=== PATIENT | male | born 1960 | race Hispanic/Latino ===

== ENCOUNTER 2019-05-19 16:44 | Inpatient (IN) | payer MEDICARE, OTHER ==
[~2019-05-19] VITALS: Ht 167.6 cm; Wt 84.5 kg
[2019-05-19] MEDS ORDERED: ONDANSETRON HCL 4 MG/2 ML VIAL ONE (17:01)
[2019-05-19 17:14] LABS: BASOPHILS % (AUTO) 0.6 % (0.0-5.0); EOSINOPHILS % (AUTO) 0.9 % (0.0-8.0); HEMATOCRIT 35.5 % (42-54); LYMPHOCYTES % (AUTO) 23.1 % (21.0-51.0); MEAN CORPUSCULAR HEMOGLOBIN 27.8 pg (27.0-33.0); MEAN CORPUSCULAR HGB CONC 33.7 g/dL (32.0-36.0); MEAN CORPUSCULAR VOLUME 82.6 fL (79-99); NEUTROPHILS % (AUTO) 64.4 % (40.0-77.0); PLATELET COUNT (AUTO) 315 K/uL (130-400)
[2019-05-19 17:22] LABS: APPEARANCE,URINE Clear (CLEAR); BILIRUBIN,URINE Negative (NEGATIVE); COLOR,URINE Yellow (YELLOW); GLUCOSE, URINE (UA) >=1000 mg/dL (NEGATIVE); KETONES,URINE Negative (NEGATIVE); LEUKOCYTE ESTERASE ,URINE Negative (NEGATIVE); NITRATE,URINE Negative (NEGATIVE); OCCULT BLOOD,URINE Trace (NEGATIVE); PROTEIN,URINE 300 mg/dL (NEGATIVE); UROBILINOGEN,URINE 0.2 mg/dL (0.2-1.0)
[2019-05-19 17:28] LABS: INR 0.95 (0.85-1.15)
[2019-05-19 17:32] LABS: ALBUMIN 4.2 g/dL (3.5-5.0); BILIRUBIN,TOTAL 0.4 mg/dL (0.2-1.0); POTASSIUM 4.6 mmol/L (3.5-5.1); TOTAL PROTEIN, SERUM 8.3 g/dL (6.0-8.3)
[2019-05-19 17:39] LABS: BACTERIA,URINE Few /HPF (None Seen); MUCUS,URINE None Seen LPF (None Seen); SQUAMOUS EPITHELIAL CELL,UR 0-2 /HPF (0-2)
[2019-05-19 17:40] LABS: PARTIAL THROMBOPLASTIN TIME 25.2 SEC (26.3-35.5)
[2019-05-19] MEDS ORDERED: SODIUM CHLORIDE 0.9% 1000ML 1,000 ML IV ONE ×2 (17:43→21:19)
[2019-05-19] MEDS ORDERED: SODIUM CHLORIDE 0.9% 100 ML IV ONE (18:01)
[2019-05-19] MEDS: SODIUM CHLORIDE 0.9% 1000ML 1,000 ML IV SCH (18:58)
[2019-05-19] MEDS ORDERED: ACETAMINOPHEN 325 MG TAB PO PRN (19:00)
[2019-05-19] MEDS ORDERED: ZOSYN 3.375GM+NS 50ML 50 ML IV SCH (20:00)
[2019-05-19 20:16] LABS: HEMOGLOBIN A1C 9.2 % (4.0-6.0)
[2019-05-19] MEDS ORDERED: INSULIN HUMULIN R 100 UNIT/ML 3ML SQ SCH (21:00)
[2019-05-19] MEDS ORDERED: ACETAMINOPHEN 325 MG TAB ONE (21:19)
[2019-05-19] MEDS ORDERED: INSULIN HUMULIN R 100 UNIT/ML 3ML ONE (21:58)
[2019-05-19 22:00] VITALS: BP 161/84
[2019-05-19] MEDS: ZOSYN 3.375GM+NS 50ML 50 ML IV SCH (22:58)
[2019-05-19 23:28] VITALS: BP 148/76
[2019-05-20] MEDS: INSULIN HUMULIN R 100 UNIT/ML 3ML SQ SCH ×5 (00:23→21:29)
[2019-05-20 03:37] VITALS: BP 125/71
[2019-05-20] MEDS: ONDANSETRON HCL 4 MG/2 ML VIAL IV PRN ×3 (04:05→20:24)
[2019-05-20] MEDS ORDERED: PANT40TA25 PO (04:24)
[2019-05-20] MEDS ORDERED: LACT1TAB26 PO (04:24)
[2019-05-20] MEDS ORDERED: ONDA4TAB9 PO (04:24)
[2019-05-20] MEDS ORDERED: FERR325T22 PO (04:24)
[2019-05-20] MEDS ORDERED: FURO40TA5 PO (04:24)
[2019-05-20] MEDS ORDERED: SIMV40TA59 PO (04:24)
[2019-05-20] MEDS ORDERED: AMLO5TAB9 PO (04:24)
[2019-05-20] MEDS ORDERED: LUBI24CA2 PO (04:24)
[2019-05-20] MEDS ORDERED: LISI10TA7 PO (04:24)
[2019-05-20] MEDS ORDERED: METO50TA18 PO (04:24)
[2019-05-20] MEDS ORDERED: ASPI-555 PO (04:24)
[2019-05-20] MEDS ORDERED: VITA1CAP50 PO (04:24)
[2019-05-20] MEDS ORDERED: CLOP75TA32 PO (04:24)
[2019-05-20] MEDS ORDERED: LINA290C PO (04:24)
[2019-05-20 04:45] LABS: BASOPHILS % (AUTO) 0.7 % (0.0-5.0); EOSINOPHILS % (AUTO) 2.2 % (0.0-8.0); HEMATOCRIT 32.4 % (42-54); LYMPHOCYTES % (AUTO) 25.5 % (21.0-51.0); MEAN CORPUSCULAR HEMOGLOBIN 27.5 pg (27.0-33.0); MEAN CORPUSCULAR HGB CONC 33.8 g/dL (32.0-36.0); MEAN CORPUSCULAR VOLUME 81.3 fL (79-99); MONOCYTES % (AUTO) 12.7 % (3.0-13.0); NEUTROPHILS % (AUTO) 58.9 % (40.0-77.0); PLATELET COUNT (AUTO) 273 K/uL (130-400); RED BLOOD CELL COUNT(AUTO) 3.98 MIL/uL (4.50-6.20); RED CELL DISTRIBUTION WIDTH 13.9 % (11.0-15.5); WHITE BLOOD COUNT (AUTO) 7.8 K/uL (4.8-10.8)
[2019-05-20 04:52] LABS: CREATININE 1.7 mg/dL (0.5-1.5)
[2019-05-20] MEDS: SODIUM CHLORIDE 0.9% 1000ML 1,000 ML IV SCH ×2 (05:40→14:58)
[2019-05-20] MEDS: ZOSYN 3.375GM+NS 50ML 50 ML IV SCH ×3 (05:40→21:27)
[2019-05-20] MEDS: MORPHINE SULFATE 2 MG/ML 1ML SYG IVP PRN ×3 (05:41→13:32)
[2019-05-20 08:10] VITALS: BP 160/74
[2019-05-20] MEDS: ENOXAPARIN SODIUM 40 MG/0.4 ML SYRINGE SQ SCH (08:56)
[2019-05-20 10:43] LABS: TROPONIN I 0.09 ng/mL (0.00-0.06)
[2019-05-20] MEDS: HYDRALAZINE HCL 20 MG/ML VIAL IV PRN (11:18)
[2019-05-20 12:00] VITALS: BP 145/77
[2019-05-20] MEDS ORDERED: ONDANSETRON 4 MG TABLET PO PRN (13:15)
[2019-05-20] MEDS ORDERED: NITROGLYCERIN 0.4 MG SL TAB SL ONE (13:28)
[2019-05-20] MEDS ORDERED: ASPIRIN 81MG TAB.CHEW ONE (13:29)
[2019-05-20] MEDS ORDERED: NITROGLYCERIN 0.4 MG SL TAB SL PRN (13:30)
--- NOTE | 2019-05-20 14:00 | NUR ---
INITIAL MET W PT AND FAMILY AT [facility]- DAUGHTER TRENT ,JOSE GUADALUPE WILL PROVIDE RANSPORT HOME.PT HAS DME- SC WKR WC, BUT NO PROSTHESIS FOR R BKA- SURGERY WAS 3 MOS AGO. PT DID NOT HAVE ANY PT POST SURGERY . PT HERE FOR ABDOMINAL PAIN AND WAS DISCONTENTED AT THE OTHER HOSPITAL. DAUGHTER STATES PT WILL LEAVE 'IF HE DOES NOT GET THE CARE HE NEED" DCP IS HOME, WILL WAIT TILL POST EGD TO SEE IF PT WILL HAVE OTHER AFTERCARE NEED Addendum: 05/20/19 at 1457 by KRISTINA SCHRADER RN CM Amended: Links added.
[2019-05-20 16:00] VITALS: BP 175/84
--- NOTE | 2019-05-20 16:35 | NUR ---
DR. PEREZ PAGED PT ASKED IF HE SEES ANY MENTAL HEALTH THERAPIST OUT PATIENT, HE STATED NO, DR. PEACE WAS THEN CONSULTED TO SEE PT, PT THEN CONFIRMS HE SEE DR PEREZ, DR. TAYLOR THEN SAID TO GO AHEAD AND CONSULT DR. PEREZ FOR ACTIVE CHEST PAIN. DR. DAVEY PAGED AND PENDING CALL BACK. NURSING WILL CONTINUE TO FOLLOW UP.
[2019-05-20 18:04] LABS: TROPONIN I 0.51 ng/mL (0.00-0.06)
--- NOTE | 2019-05-20 18:32 | NUR ---
DR. DAVEY PAGED. DR. DAVEY PAGED TO NOTIFY OF ELEVATED TROPONIN, PENDING CALL BACK.
[2019-05-20] MEDS: FERROUS SULFATE 325 MG TABLET.DR PO SCH (18:40)
[2019-05-20 19:15] VITALS: BP 160/83
[2019-05-20] MEDS: LISINOPRIL 10 MG TABLET PO SCH (20:25)
[2019-05-20] MEDS: METOPROLOL TARTRATE 50 MG TAB PO SCH (20:25)
[2019-05-20] MEDS: SIMVASTATIN 20 MG TABLET PO SCH (20:25)
[2019-05-20] MEDS: ACETAMINOPHEN 325 MG TAB PO PRN (20:26)
--- NOTE | 2019-05-20 20:27 | NUR ---
DR DAVEY CALLED BACK AND MADE AWARE OF ELEVATED TROPONIN, TO STOP BY AND SEE RUBY AWAD.
--- NOTE | 2019-05-20 20:45 | NUR ---
MD TAMICA Jane made rounds and spoke to patient about who is his heart doctor and when the last time patient saw his heart doctor. Patient states he saw MD Isaac last year at heart [facility] and MD Wood did his amputation. When Tamica asked who would he like to see as his heart doctor, patient states Md Isaac. MD Jane says he will sign off and to call MD Isaac to be consulted onto this case.
--- NOTE | 2019-05-20 20:48 | NUR ---
MD PEACE Paged MD Peace; returned the page. Explained to MD Peace that MD Jane came by to see the patient and asked patient who he saw as his heart doctor and that the patient stated Md Peace. MD Peace stated that he has never seen or spoked to patient prior to this admission. MD Peace states he spoke to MD Wood at [facility] [place] and mentioned to him about the patient. states that MD Wood is familiar with patient and MD Peace states to consult MD Wood and let MD Jane know about patient being MD Wood patient. Will call back MD Jane.
--- NOTE | 2019-05-20 21:00 | NUR ---
MD DAVEY Paged MD Davey; returned page. Informed him that MD Isaac will not see the patient and that patient's heart doctor is MD Wood. MD Davye states to consult MD Wood in am. MD Davey states he will not be involved and spent too much time on this case. Asked MD Davey if he was motivational speaker for MD Wood just incase last troponin is higher than last, he states again he will not be involved and to consult MD Wood in am. Will follow order and continue to monitor patient.
[2019-05-21] VITALS (7 sets, daily range): BP systolic 145–187; BP diastolic 74–89
[2019-05-21 00:02] LABS: TROPONIN I 2.22 ng/mL (0.00-0.06)
--- NOTE | 2019-05-21 00:25 | NUR ---
ELEVATED TROPONIN Received notification that patient's critical lab for troponin is 2.22; prior was 0.51. Paged MD supervisor erection shop via answering service; MD Jane is supervisor erection shop for MD Wood. Patient is asymptomatic and current vital signs are stable, with normal limits. Will wait for page and continue to monitor patient.
--- NOTE | 2019-05-21 00:35 | NUR ---
MD TAMICA Jane returned page and informed him of patient's critical lab of a troponin level of 2.22. Reported prior troponin lab values to MD Jane. states to keep patient NPO and to notify MD Rodgers at 0730 to see if wants to do a heart cath. Asked if patient had prn nitroglycerin and taking a beta coco; reported that patient does have prn nitroglycerin and has lopressor 50 mg po bid and given earlier around 9 pm. MD Jane states ok and no other orders obtained. Will follow orders and continue to monitor patient.
[2019-05-21] MEDS: ONDANSETRON HCL 4 MG/2 ML VIAL IV PRN ×2 (03:15→21:32)
[2019-05-21] MEDS: MORPHINE SULFATE 2 MG/ML 1ML SYG IVP PRN ×3 (03:21→17:25)
[2019-05-21] MEDS: SODIUM CHLORIDE 0.9% 1000ML 1,000 ML IV SCH ×3 (04:10→20:58)
[2019-05-21 05:10] LABS: BASOPHILS % (AUTO) 0.3 % (0.0-5.0); EOSINOPHILS % (AUTO) 1.5 % (0.0-8.0); HEMATOCRIT 29.4 % (42-54); LYMPHOCYTES % (AUTO) 16.5 % (21.0-51.0); MEAN CORPUSCULAR HEMOGLOBIN 27.4 pg (27.0-33.0); MEAN CORPUSCULAR HGB CONC 33.2 g/dL (32.0-36.0); MEAN CORPUSCULAR VOLUME 82.6 fL (79-99); MONOCYTES % (AUTO) 9.4 % (3.0-13.0); NEUTROPHILS % (AUTO) 72.3 % (40.0-77.0); PLATELET COUNT (AUTO) 244 K/uL (130-400); RED BLOOD CELL COUNT(AUTO) 3.56 MIL/uL (4.50-6.20); RED CELL DISTRIBUTION WIDTH 14.1 % (11.0-15.5); WHITE BLOOD COUNT (AUTO) 9.7 K/uL (4.8-10.8)
[2019-05-21 05:28] LABS: CREATININE 1.7 mg/dL (0.5-1.5); POTASSIUM 4.1 mmol/L (3.5-5.1)
[2019-05-21] MEDS: ZOSYN 3.375GM+NS 50ML 50 ML IV SCH ×2 (05:29→14:07)
[2019-05-21] MEDS: INSULIN HUMULIN R 100 UNIT/ML 3ML SQ SCH ×4 (05:30→21:42)
[2019-05-21] MEDS: PANTOPRAZOLE SODIUM 40 MG TABLET.DR PO SCH (05:30)
--- NOTE | 2019-05-21 07:44 | NUR ---
PAGED MD RODGERS Order to consult MD Wood in AM for elevated troponin; Paged via answering service. Provided day shift nurse's name and phone number for MD Rodgers to reach. Will endorse to day shift nurse.
[2019-05-21] MEDS: LACTOBACILLUS RHAMNOSUS GG 1 EACH CAP.SPRINK PO SCH (08:00)
[2019-05-21] MEDS: FERROUS SULFATE 325 MG TABLET.DR PO SCH ×2 (08:00→17:25)
--- NOTE | 2019-05-21 08:20 | NUR ---
SPOKE TO DR. PEREZ ON THE PHONE AND NOTIFY HIM ABOUT THE CONSULT. HE VERBALIZED THAT HE IS AWARE OF THE CONSULT THAT DR. PEACE TALKED TO HIM LAST NIGHT. NO ORDERS WAS GIVEN.
[2019-05-21] MEDS: ASPIRIN 81 MG EC TAB PO SCH (08:38)
[2019-05-21] MEDS: METOPROLOL TARTRATE 50 MG TAB PO SCH ×2 (08:38→21:32)
[2019-05-21] MEDS: FUROSEMIDE 40 MG TABLET PO SCH (08:38)
[2019-05-21] MEDS: AMLODIPINE BESYLATE 5 MG TAB PO SCH (08:40)
[2019-05-21] MEDS: HOME MEDICATION 1 EACH PO SCH (09:00)
[2019-05-21] MEDS: VITAMIN B COMPLEX 1 CAPSULE PO SCH (09:00)
[2019-05-21] MEDS: LUBIPROSTONE 24 MCG CAP PO SCH (09:00)
--- NOTE | 2019-05-21 09:12 | NUR ---
DR. PEREZ AT THE BEDSIDE. DISCUSSED THE PLAN OF CARE TO THE PATIENT. HE ORDERED TO SETS OF TROPONIN NOW AND ANOTHER ONE FOR 3 PM. HE ALSO TOLD ME THAT HE MIGHT DO THE STRESS TEST IF THE TROPONIN WILL NOT CONTINUE TO ELEVATE. NO ORDERS FOR HEART CATH AT THIS POINT.
[2019-05-21] MEDS: ENOXAPARIN SODIUM 40 MG/0.4 ML SYRINGE SQ SCH (11:43)
[2019-05-21] MEDS: CLOPIDOGREL BISULFATE 75 MG TAB PO SCH (11:45)
[2019-05-21] MEDS: PANTOPRAZOLE SODIUM 80 MG in SODIUM CHLORIDE 0.9% 100 ML IV SCH (18:19)
[2019-05-21] MEDS: LISINOPRIL 10 MG TABLET PO SCH (21:32)
[2019-05-21] MEDS: SIMVASTATIN 20 MG TABLET PO SCH (21:33)
[2019-05-21] MEDS: ACETAMINOPHEN 325 MG TAB PO PRN (21:41)
--- NOTE | 2019-05-21 22:00 | NUR ---
lab called patient is still pending a stool culture. had previously asked ED to send sample, but lab says the message must not have been relayed to the floor nurse. will inform CHOPPED STRAND OPERATOR and oncoming nurse of pending stool sample.
[2019-05-22] VITALS (7 sets, daily range): BP systolic 156–190; BP diastolic 69–99
[2019-05-22] MEDS: ZOSYN 3.375GM+NS 50ML 50 ML IV SCH ×4 (00:05→21:19)
[2019-05-22] MEDS: HYDRALAZINE HCL 20 MG/ML VIAL IV PRN (04:48)
[2019-05-22] MEDS: ONDANSETRON HCL 4 MG/2 ML VIAL IV PRN (06:14)
[2019-05-22] MEDS: MORPHINE SULFATE 2 MG/ML 1ML SYG IVP PRN ×2 (06:15→18:06)
[2019-05-22 06:49] LABS: BASOPHILS % (AUTO) 0.4 % (0.0-5.0); EOSINOPHILS % (AUTO) 2.4 % (0.0-8.0); LYMPHOCYTES % (AUTO) 12.9 % (21.0-51.0); MEAN CORPUSCULAR HEMOGLOBIN 27.3 pg (27.0-33.0); MEAN CORPUSCULAR HGB CONC 33.2 g/dL (32.0-36.0); MEAN CORPUSCULAR VOLUME 82.1 fL (79-99); MONOCYTES % (AUTO) 8.4 % (3.0-13.0); NEUTROPHILS % (AUTO) 75.9 % (40.0-77.0); PLATELET COUNT (AUTO) 241 K/uL (130-400); RED BLOOD CELL COUNT(AUTO) 3.89 MIL/uL (4.50-6.20); RED CELL DISTRIBUTION WIDTH 13.8 % (11.0-15.5); WHITE BLOOD COUNT (AUTO) 10.4 K/uL (4.8-10.8)
[2019-05-22] MEDS: SODIUM CHLORIDE 0.9% 1000ML 1,000 ML IV SCH (06:58)
[2019-05-22 07:13] LABS: POTASSIUM 3.9 mmol/L (3.5-5.1)
[2019-05-22 07:14] LABS: CREATININE 1.6 mg/dL (0.5-1.5)
[2019-05-22] MEDS: INSULIN HUMULIN R 100 UNIT/ML 3ML SQ SCH ×4 (07:30→21:35)
[2019-05-22] MEDS ORDERED: REGADENOSON 0.4 MG/5 ML PF SYG IVP SCH (07:30)
[2019-05-22] MEDS: PANTOPRAZOLE SODIUM 40 MG TABLET.DR PO SCH (07:30)
--- NOTE | 2019-05-22 07:56 | NUR ---
notified dr. mayen of the troponin 2.56 and also verify if he still wanted the stress test to be done. he verbalized to hold the stress test until he will say to do it and he will come by to see the patient first.
[2019-05-22] MEDS: LACTOBACILLUS RHAMNOSUS GG 1 EACH CAP.SPRINK PO SCH (08:00)
[2019-05-22] MEDS: FERROUS SULFATE 325 MG TABLET.DR PO SCH ×2 (08:00→17:00)
[2019-05-22] MEDS: VITAMIN B COMPLEX 1 CAPSULE PO SCH (08:10)
[2019-05-22] MEDS: LUBIPROSTONE 24 MCG CAP PO SCH (08:10)
[2019-05-22] MEDS: HOME MEDICATION 1 EACH PO SCH (08:10)
[2019-05-22] MEDS: METOPROLOL TARTRATE 50 MG TAB PO SCH ×2 (09:16→21:15)
[2019-05-22] MEDS: FUROSEMIDE 40 MG TABLET PO SCH (09:16)
[2019-05-22] MEDS: CLOPIDOGREL BISULFATE 75 MG TAB PO SCH (09:16)
[2019-05-22] MEDS: ASPIRIN 81 MG EC TAB PO SCH (09:17)
[2019-05-22] MEDS: AMLODIPINE BESYLATE 5 MG TAB PO SCH (09:17)
[2019-05-22] MEDS: ENOXAPARIN SODIUM 40 MG/0.4 ML SYRINGE SQ SCH (09:19)
[2019-05-22] MEDS: SIMVASTATIN 20 MG TABLET PO SCH (21:15)
[2019-05-22] MEDS: LISINOPRIL 10 MG TABLET PO SCH (21:16)
[2019-05-22] MEDS: ACETAMINOPHEN 325 MG TAB PO PRN (21:19)
[2019-05-23] VITALS (9 sets, daily range): BP systolic 154–196; BP diastolic 70–92
[2019-05-23] MEDS: MORPHINE SULFATE 2 MG/ML 1ML SYG IVP PRN ×2 (02:18→10:06)
[2019-05-23] MEDS: SODIUM CHLORIDE 0.9% 1000ML 1,000 ML IV SCH ×3 (03:10→22:58)
[2019-05-23 05:00] LABS: BASOPHILS % (AUTO) 0.8 % (0.0-5.0); EOSINOPHILS % (AUTO) 5.5 % (0.0-8.0); HEMATOCRIT 28.1 % (42-54); LYMPHOCYTES % (AUTO) 32.3 % (21.0-51.0); MEAN CORPUSCULAR HEMOGLOBIN 27.4 pg (27.0-33.0); MEAN CORPUSCULAR HGB CONC 33.7 g/dL (32.0-36.0); MEAN CORPUSCULAR VOLUME 81.3 fL (79-99); MONOCYTES % (AUTO) 13.1 % (3.0-13.0); NEUTROPHILS % (AUTO) 48.3 % (40.0-77.0); PLATELET COUNT (AUTO) 229 K/uL (130-400); RED BLOOD CELL COUNT(AUTO) 3.45 MIL/uL (4.50-6.20); RED CELL DISTRIBUTION WIDTH 13.5 % (11.0-15.5); WHITE BLOOD COUNT (AUTO) 5.5 K/uL (4.8-10.8)
[2019-05-23 05:36] LABS: CREATININE 1.5 mg/dL (0.5-1.5); POTASSIUM 3.6 mmol/L (3.5-5.1)
[2019-05-23] MEDS: ZOSYN 3.375GM+NS 50ML 50 ML IV SCH ×3 (05:51→21:30)
[2019-05-23] MEDS: HYDRALAZINE HCL 20 MG/ML VIAL IV PRN (06:13)
[2019-05-23] MEDS: PANTOPRAZOLE SODIUM 40 MG TABLET.DR PO SCH (06:14)
[2019-05-23] MEDS: INSULIN HUMULIN R 100 UNIT/ML 3ML SQ SCH ×4 (07:18→21:31)
[2019-05-23] MEDS: FERROUS SULFATE 325 MG TABLET.DR PO SCH ×2 (08:00→16:53)
[2019-05-23] MEDS: LACTOBACILLUS RHAMNOSUS GG 1 EACH CAP.SPRINK PO SCH (08:00)
--- NOTE | 2019-05-23 08:31 | NUR ---
DR PEREZ PAGED DR. PEREZ PAGED AND NOTIFIED ABOUT THE LEXISCAN NOT DONE DUE TO PT KIDNEY FUNCTION, HE ENQUIRED ABOUT THE TROPONIN LEVEL, MADE KNOWN TROPONIN LEVEL DROP FROM 2.60 TO 2.56, MD OKAYED FOR THE LEXISCAN TO BE DONE TODAY.
[2019-05-23] MEDS: HOME MEDICATION 1 EACH PO SCH (09:00)
[2019-05-23] MEDS: VITAMIN B COMPLEX 1 CAPSULE PO SCH (09:00)
[2019-05-23] MEDS: LUBIPROSTONE 24 MCG CAP PO SCH (09:00)
[2019-05-23] MEDS: REGADENOSON 0.4 MG/5 ML PF SYG IVP SCH ×2 (11:30→17:41)
--- NOTE | 2019-05-23 14:14 | NUR ---
PT UPDATE PT TAKEN DOWN FOR LEXISCAN, NURSING WILL CONTINUE TO FOLLOW UP AND MONITOR PT.
[2019-05-23] MEDS: FUROSEMIDE 40 MG TABLET PO SCH (16:53)
[2019-05-23] MEDS: ASPIRIN 81 MG EC TAB PO SCH (16:53)
[2019-05-23] MEDS: AMLODIPINE BESYLATE 5 MG TAB PO SCH (16:53)
[2019-05-23] MEDS: METOPROLOL TARTRATE 50 MG TAB PO SCH ×2 (16:53→21:29)
[2019-05-23] MEDS: CLOPIDOGREL BISULFATE 75 MG TAB PO SCH (16:53)
[2019-05-23] MEDS: ENOXAPARIN SODIUM 40 MG/0.4 ML SYRINGE SQ SCH (16:54)
[2019-05-23] MEDS ORDERED: LACTULOSE 20 GM/30 ML UDCUP PO PRN (17:15)
[2019-05-23] MEDS: LACTULOSE 20 GM/30 ML UDCUP PO PRN (17:22)
[2019-05-23] MEDS: ACETAMINOPHEN 325 MG TAB PO PRN (17:28)
[2019-05-23] MEDS: PANTOPRAZOLE SODIUM 80 MG in SODIUM CHLORIDE 0.9% 100 ML IV SCH (18:24)
[2019-05-23] MEDS: SIMVASTATIN 20 MG TABLET PO SCH (21:30)
[2019-05-23] MEDS: LISINOPRIL 10 MG TABLET PO SCH (21:30)
[2019-05-24] MEDS: ACETAMINOPHEN 325 MG TAB PO PRN (00:08)
[2019-05-24 03:50] VITALS: BP 161/62
[2019-05-24 05:19] LABS: BASOPHILS % (AUTO) 0.5 % (0.0-5.0); HEMATOCRIT 28.6 % (42-54); LYMPHOCYTES % (AUTO) 38.4 % (21.0-51.0); MEAN CORPUSCULAR HEMOGLOBIN 27.3 pg (27.0-33.0); MEAN CORPUSCULAR HGB CONC 33.7 g/dL (32.0-36.0); MEAN CORPUSCULAR VOLUME 81.2 fL (79-99); MONOCYTES % (AUTO) 13.5 % (3.0-13.0); NEUTROPHILS % (AUTO) 41.6 % (40.0-77.0); PLATELET COUNT (AUTO) 223 K/uL (130-400); RED BLOOD CELL COUNT(AUTO) 3.53 MIL/uL (4.50-6.20); RED CELL DISTRIBUTION WIDTH 13.6 % (11.0-15.5); WHITE BLOOD COUNT (AUTO) 5.1 K/uL (4.8-10.8)
[2019-05-24 05:23] LABS: CREATININE 1.3 mg/dL (0.5-1.5); POTASSIUM 3.3 mmol/L (3.5-5.1)
[2019-05-24] MEDS: ZOSYN 3.375GM+NS 50ML 50 ML IV SCH (05:51)
[2019-05-24] MEDS: INSULIN HUMULIN R 100 UNIT/ML 3ML SQ SCH ×4 (05:59→21:19)
[2019-05-24 07:30] VITALS: BP 179/79
[2019-05-24] MEDS: VITAMIN B COMPLEX 1 CAPSULE PO SCH (08:21)
[2019-05-24] MEDS: METOPROLOL TARTRATE 50 MG TAB PO SCH ×3 (08:21→20:22)
[2019-05-24] MEDS: LUBIPROSTONE 24 MCG CAP PO SCH (08:21)
[2019-05-24] MEDS: LACTOBACILLUS RHAMNOSUS GG 1 EACH CAP.SPRINK PO SCH (08:22)
[2019-05-24] MEDS: ASPIRIN 81 MG EC TAB PO SCH (08:22)
[2019-05-24] MEDS: FERROUS SULFATE 325 MG TABLET.DR PO SCH ×2 (08:22→16:43)
[2019-05-24] MEDS: FUROSEMIDE 40 MG TABLET PO SCH (08:22)
[2019-05-24] MEDS: AMLODIPINE BESYLATE 5 MG TAB PO SCH (08:22)
[2019-05-24] MEDS: SODIUM CHLORIDE 0.9% 1000ML 1,000 ML IV SCH ×2 (08:22→15:08)
[2019-05-24] MEDS: CLOPIDOGREL BISULFATE 75 MG TAB PO SCH (08:22)
[2019-05-24] MEDS: PANTOPRAZOLE SODIUM 40 MG TABLET.DR PO SCH (08:22)
[2019-05-24] MEDS: ENOXAPARIN SODIUM 40 MG/0.4 ML SYRINGE SQ SCH (08:27)
[2019-05-24] MEDS: HOME MEDICATION 1 EACH PO SCH (08:27)
[2019-05-24] MEDS: MORPHINE SULFATE 2 MG/ML 1ML SYG IVP PRN (10:02)
[2019-05-24] MEDS: LACTULOSE 20 GM/30 ML UDCUP PO PRN (10:02)
[2019-05-24] MEDS: ONDANSETRON HCL 4 MG/2 ML VIAL IV PRN (10:02)
[2019-05-24 11:00] VITALS: BP 162/69
[2019-05-24] MEDS: LISINOPRIL 10 MG TABLET PO SCH ×2 (12:27→20:22)
[2019-05-24] MEDS ORDERED: POTASSIUM CHLORIDE 20 MEQ ERTAB PO SCH (15:15)
[2019-05-24 16:00] VITALS: BP 174/77
[2019-05-24] MEDS: LEVOFLOXACIN 500 MG/D5W 100 ML 100 ML IV SCH (16:43)
[2019-05-24 20:00] VITALS: BP 177/84
[2019-05-24] MEDS: SIMVASTATIN 20 MG TABLET PO SCH (20:22)
[2019-05-24 23:44] VITALS: BP 158/65
[2019-05-25] MEDS: SODIUM CHLORIDE 0.9% 1000ML 1,000 ML IV SCH ×2 (03:49→10:46)
[2019-05-25 03:50] VITALS: BP 158/77
[2019-05-25 05:03] LABS: BASOPHILS % (AUTO) 0.5 % (0.0-5.0); EOSINOPHILS % (AUTO) 3.7 % (0.0-8.0); HEMATOCRIT 28.9 % (42-54); MEAN CORPUSCULAR HEMOGLOBIN 27.2 pg (27.0-33.0); MEAN CORPUSCULAR HGB CONC 33.8 g/dL (32.0-36.0); MEAN CORPUSCULAR VOLUME 80.5 fL (79-99); MONOCYTES % (AUTO) 11.4 % (3.0-13.0); NEUTROPHILS % (AUTO) 56.4 % (40.0-77.0); PLATELET COUNT (AUTO) 236 K/uL (130-400); RED BLOOD CELL COUNT(AUTO) 3.59 MIL/uL (4.50-6.20); RED CELL DISTRIBUTION WIDTH 13.6 % (11.0-15.5); WHITE BLOOD COUNT (AUTO) 5.9 K/uL (4.8-10.8)
[2019-05-25 05:12] LABS: CREATININE 1.4 mg/dL (0.5-1.5); POTASSIUM 3.5 mmol/L (3.5-5.1)
[2019-05-25] MEDS: INSULIN HUMULIN R 100 UNIT/ML 3ML SQ SCH ×4 (05:53→23:13)
[2019-05-25 07:30] VITALS: BP 168/81
[2019-05-25] MEDS: VITAMIN B COMPLEX 1 CAPSULE PO SCH (08:57)
[2019-05-25] MEDS: ASPIRIN 81 MG EC TAB PO SCH (08:57)
[2019-05-25] MEDS: CLOPIDOGREL BISULFATE 75 MG TAB PO SCH (08:57)
[2019-05-25] MEDS: FERROUS SULFATE 325 MG TABLET.DR PO SCH ×2 (08:57→17:40)
[2019-05-25] MEDS: AMLODIPINE BESYLATE 5 MG TAB PO SCH (08:58)
[2019-05-25] MEDS: METOPROLOL TARTRATE 50 MG TAB PO SCH ×3 (08:58→20:34)
[2019-05-25] MEDS: FUROSEMIDE 40 MG TABLET PO SCH (08:58)
[2019-05-25] MEDS: LACTOBACILLUS RHAMNOSUS GG 1 EACH CAP.SPRINK PO SCH (08:58)
[2019-05-25] MEDS: LISINOPRIL 10 MG TABLET PO SCH ×2 (08:58→20:33)
[2019-05-25] MEDS: ENOXAPARIN SODIUM 40 MG/0.4 ML SYRINGE SQ SCH (08:59)
[2019-05-25] MEDS: HOME MEDICATION 1 EACH PO SCH (09:00)
[2019-05-25] MEDS ORDERED: METOCLOPRAMIDE 10 MG TABLET PO SCH (10:45)
[2019-05-25 11:00] VITALS: BP 194/88
--- NOTE | 2019-05-25 12:27 | NUR ---
PT UPDATE Pt refusing telemetry monitoring at this time, Risk and benefit information provided, Nursing will continue to monitor pt.
[2019-05-25 16:00] VITALS: BP 154/77
[2019-05-25] MEDS: LEVOFLOXACIN 500 MG/D5W 100 ML 100 ML IV SCH (17:40)
[2019-05-25] MEDS: METOCLOPRAMIDE 5 MG TABLET PO SCH (17:40)
[2019-05-25 19:08] VITALS: BP 186/85
[2019-05-25] MEDS: SIMVASTATIN 20 MG TABLET PO SCH (20:33)
[2019-05-25 23:33] VITALS: BP 194/81
[2019-05-26] VITALS (13 sets, daily range): BP systolic 106–208; BP diastolic 52–94
[2019-05-26] MEDS: INSULIN HUMULIN R 100 UNIT/ML 3ML SQ SCH ×3 (05:32→16:30)
[2019-05-26] MEDS: METOCLOPRAMIDE 5 MG TABLET PO SCH ×2 (05:50→11:30)
[2019-05-26 06:03] LABS: BASOPHILS % (AUTO) 0.4 % (0.0-5.0); EOSINOPHILS % (AUTO) 2.4 % (0.0-8.0); HEMATOCRIT 29.7 % (42-54); LYMPHOCYTES % (AUTO) 30.3 % (21.0-51.0); MEAN CORPUSCULAR HEMOGLOBIN 27.8 pg (27.0-33.0); MEAN CORPUSCULAR HGB CONC 34.5 g/dL (32.0-36.0); MEAN CORPUSCULAR VOLUME 80.5 fL (79-99); NEUTROPHILS % (AUTO) 56.9 % (40.0-77.0); NUCLEATED RED BLOOD CELLS 0.1 % (0.0-0.19); PLATELET COUNT (AUTO) 229 K/uL (130-400); RED BLOOD CELL COUNT(AUTO) 3.68 MIL/uL (4.50-6.20); RED CELL DISTRIBUTION WIDTH 13.6 % (11.0-15.5)
[2019-05-26 06:15] LABS: CREATININE 1.3 mg/dL (0.5-1.5); POTASSIUM 3.2 mmol/L (3.5-5.1)
--- NOTE | 2019-05-26 07:45 | NUR ---
PATIENT GOING FOR EGD AT THIS TIME . BP 187/82. RN IN ROOM STATED PER JACQUELINE SMITH ANESTHESIA WILL TREAT BP AFTER IF NEEDED .PATIENT TAKEN TO ENDOSCOPY
--- NOTE | 2019-05-26 07:45 | NUR ---
ADVISED Mali SMITH CRNA ABOUT ELEVATED BP 187/82, PULSE 64. FLOOR NURSE ASKED WHETHER TO GIVE HYDRALAZINE PRN. Mali SMITH STATED HE WILL TREAT BP PRN DURING OR AFTER PROCEDURE.
[2019-05-26] MEDS: LACTOBACILLUS RHAMNOSUS GG 1 EACH CAP.SPRINK PO SCH (08:00)
[2019-05-26] MEDS: FERROUS SULFATE 325 MG TABLET.DR PO SCH (08:00)
[2019-05-26] MEDS ORDERED: PROPOFOL 10 MG/ML 20ML VIAL IV ONE (08:11)
[2019-05-26] MEDS: HOME MEDICATION 1 EACH PO SCH (09:00)
[2019-05-26] MEDS: FUROSEMIDE 40 MG TABLET PO SCH (10:08)
[2019-05-26] MEDS: AMLODIPINE BESYLATE 5 MG TAB PO SCH (10:08)
[2019-05-26] MEDS: ASPIRIN 81 MG EC TAB PO SCH (10:08)
[2019-05-26] MEDS: VITAMIN B COMPLEX 1 CAPSULE PO SCH (10:08)
[2019-05-26] MEDS: LISINOPRIL 10 MG TABLET PO SCH (10:09)
[2019-05-26] MEDS: ENOXAPARIN SODIUM 40 MG/0.4 ML SYRINGE SQ SCH (10:11)
[2019-05-26] MEDS: CLOPIDOGREL BISULFATE 75 MG TAB PO SCH (10:12)
[2019-05-26] MEDS: METOPROLOL TARTRATE 50 MG TAB PO SCH (10:14)
[2019-05-26] MEDS ORDERED: POTASSIUM CHLORIDE 20 MEQ ERTAB PO ONE (10:30)
[2019-05-26] MEDS: HYDRALAZINE HCL 20 MG/ML VIAL IV PRN (11:08)
--- NOTE | 2019-05-26 15:05 | NUR ---
RD NOTIFICATION Dx: Abdominal pain, + stool occult. Diet: Clear liquids. PO intake 100% and has good appetite. LBM: 10/3; diarrhea. No complaints of nausea, emesis, or abdominal pain after consuming clear liquids. RD provided DM diet and nutrition medical nutrition therapy education in Bel[place]ian due to elevated A1C of 9.2 and EAG at 217. Pt unable to identify all foods that raise BG levels. Pt verbalized understanding. Education materials provided. RD recommends continue current diet, advance as tolerated to full liquids, lastly 75gmCCD, Heart Healthy. Monitor pain, emesis, diarrhea, labs RD provided DM diet and nutrition education RD will continue to monitor and follow up as needed Ben Lira MS, [place], RAMIREZ Addendum: 05/26/19 at [address] Amended: Links added.
--- NOTE | 2019-05-26 15:13 | NUR ---
DIET EDUCATION RD provided DM diet and nutrition medical nutrition therapy education in [place]an due to elevated A1C of 9.2 and EAG at 217. Pt unable to identify all foods that raise BG levels. Pt verbalized understanding. Education materials provided. Addendum: 05/26/19 at [address] Amended: Links added.
[2019-05-26] MEDS ORDERED: POTASSIUM CHLORIDE 10% ELIXIR 20 MEQ/15 ML UDCUP PO SCH (15:30)
[2019-05-26] MEDS ORDERED: METO5TAB2 PO (15:33)
== END 2019-05-26 19:00 | disposition home or self-care (01) | DRG 871 ==
LOC: EDH 16:44 → OBSVTOIN 18:55 → EDHIP 18:55 → 3BH 20:49
PROVIDERS: ADMIT Internal Medicine; ATTEND Internal Medicine
PROC: 0DB98ZX Excision of Duodenum, Via Natural or Artificial Opening Endoscopic, Diagnostic (ICD-10-PCS; principal; 2019-05-26)
PROC: 0DB68ZX Excision of Stomach, Via Natural or Artificial Opening Endoscopic, Diagnostic (ICD-10-PCS; 2019-05-26)
DX: A41.9 Sepsis, unspecified organism (principal); I21.4 Non-ST elevation (NSTEMI) myocardial infarction; K29.51 Unspecified chronic gastritis with bleeding; D62 Acute posthemorrhagic anemia; A04.9 Bacterial intestinal infection, unspecified; N18.3 Chronic kidney disease, stage 3 (moderate); I12.9 Hypertensive chronic kidney disease with stage 1 through stage 4 chronic kidney disease, or unspecified chronic kidney disease; E11.22 Type 2 diabetes mellitus with diabetic chronic kidney disease; E11.51 Type 2 diabetes mellitus with diabetic peripheral angiopathy without gangrene; K29.50 Unspecified chronic gastritis without bleeding; E78.5 Hyperlipidemia, unspecified; I25.10 Atherosclerotic heart disease of native coronary artery without angina pectoris; Z89.511 Acquired absence of right leg below knee
CPT/HCPCS: 36415; 43239; 74176; 78452; 80048; 80053; 81001; 82150; 82270; 82550; 82948; 83036; 83605; 83630; 83690; 83874; 84484; 85025; 85610; 85730; 86850; 86900; 86901; 87040; 87046; 87177; 87804; 88305; 93005; 93017; 96374; A4606; A9500; C9113; G0378; J0360; J1650; J1815; J1956; J2405; J2543; J2704; J2785; J7030